=== PATIENT | female | born 1970 | race American Indian/Alaskan Native ===

== ENCOUNTER 2017-02-24 10:13 | Emergency (ER) | payer OTHER ==
[2017-02-24 10:22] VITALS: BP 129/79
[2017-02-24] MEDS ORDERED: MORPHINE IM ONE (10:38)
[2017-02-24] MEDS ORDERED: ZOFRAN ODT PO ONE (10:38)
--- NOTE | 2017-02-24 11:03 | Cat Scan Report ---
CT SCAN OF THE lumbar SPINE: HISTORY: Back pain. TECHNIQUE: Contiguous 1.25 mm axial images of the lumbar spine were obtained. Sagittal and coronal reformatted images. FINDINGS: There is normal alignment of the lumbar spine. The body, pedicles and posterior ligaments appear normal. No evidence of fracture or subluxation is seen. The spinal canal appears normal. The prevertebral soft tissues appear normal. IMPRESSION: Unremarkable CT of the lumbar spine. No acute process is noted.
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
== END 2017-02-24 12:33 | disposition home or self-care (01) ==
LOC: ED 10:13
DX: S33.5XXA Sprain of ligaments of lumbar spine, initial encounter (principal); V89.2XXA Person injured in unspecified motor-vehicle accident, traffic, initial encounter; Y93.89 Activity, other specified; Y99.8 Other external cause status; Y92.410 Unspecified street and highway as the place of occurrence of the external cause
CPT/HCPCS: 72131; 96372; 99284; J2270; Q0162